=== PATIENT | male | born 1965 | race Caucasian/White ===

== ENCOUNTER 2017-05-19 14:18 | Outpatient (CLI) | payer MEDICARE ==
--- NOTE | 2017-05-19 15:01 | ULT ---
RIGHT UPPER QUADRANT ULTRASOUND: Date: 05/19/17 CLINICAL HISTORY: Hepatitis C. FINDINGS: No focal hepatic lesion. No acute gallbladder pathology. Common duct is normal a 5 mm. There is no a scites. IMPRESSION: No acute abnormality. POS: [facility]
== END 2017-05-19 14:19 | disposition home or self-care (01) ==
LOC: NAV ULT 14:18
PROVIDERS: ATTEND Internal Medicine Gastroenterology
DX: Z12.11 Encounter for screening for malignant neoplasm of colon (principal); R12 Heartburn; Z86.19 Personal history of other infectious and parasitic diseases
CPT/HCPCS: 76705

== ENCOUNTER 2018-06-30 15:20 | Outpatient (CLI) | payer MEDICARE ==
--- NOTE | 2018-06-30 16:24 | ULT ---
GALLBLADDER ULTRASOUND: 06/30/18 HISTORY: Hepatitis C. COMPARISON: 05/19/17. TECHNIQUE: Utilizing a multihertz transducer, sonographic imaging of the right upper quadrant is performed in th e longitudinal and transverse plane. FINDINGS: The visualized hepatic parenchyma has a normal echotexture. No hepatic masses or intrahepatic biliary dilatation. Contour of the hepatic margin is maintained. The head of the pancreas has a normal echot exture. The tail of the pancreas is obscured by bowel gas. The right hepatic lobe measures 16.2 cm. Suboptimal evaluation of the common bile duct. Common bile d uct diameter is 0.5 cm. Gallbladder wall is not thickened. No pericholecystic fluid. Negative Joshi's sign. Questionable jana yp in the lumen of the gallbladder measuring 0.1 cm. RIGHT KIDNEY: No hydronephrosis. Normal cortical echotexture. 10.9 x 5.6 x 5.2 cm. IMPRESSION: Unremarkable right upper quadrant ultrasound. POS: [facility]
== END 2018-06-30 15:21 | disposition home or self-care (01) ==
LOC: NAV ULT 15:20
PROVIDERS: ATTEND Internal Medicine Gastroenterology
DX: Z86.19 Personal history of other infectious and parasitic diseases (principal)
CPT/HCPCS: 76705

== ENCOUNTER 2019-11-07 06:43 | Emergency (ER) | payer MEDICARE ==
[2019-11-07] MEDS ORDERED: Pantoprazole 40 MG VIAL ONE (07:35)
[2019-11-07] MEDS ORDERED: Ketorolac Tromethamine 30 MG/ML VIAL ONE (07:35)
[2019-11-07] MEDS ORDERED: Sodium Chloride 0.9% 1,000 ML ONE (07:35)
[2019-11-07 07:38] LABS: #Basophils 0.1 thou/uL (0.0-0.2); #Eosinphils 0.1 thou/uL (0.0-0.7); #Lymphocytes 0.6 thou/uL (1.20-3.40); #Monocytes 0.6 thou/uL (0.11-0.59); #Neutrophils 6.4 thou/uL (1.40-6.50); %Basophils 0.7 % (0.0-1.0); %Eosinophils 0.7 % (0.0-10.0); %Monocytes 7.1 % (0.0-10.0); %Neutrophils 83.5 % (42.0-75.0); Hemoglobin 14.5 g/dL (14.0-18.0); Mean Corpuscular HGB CONC 32.7 g/dL (32.0-36.0); Mean Corpuscular Hemoglobin 30.4 pg (27.0-31.0); Mean Corpuscular Volume 93.1 fL (78.0-98.0); Mean Platelet Volume 8.2 fL (7.4-10.4); Platelet Count 287 thou/uL (130-400); RBC Distribution Width 12.3 % (11.5-14.5); Red Blood Cell (RBC) Count 4.78 mill/uL (4.70-6.10); White Blood Cell (WBC) Count 7.7 thou/uL (4.8-10.8)
[2019-11-07 07:48] LABS: Bilirubin Negative (Negative); Blood, Urine Trace (Negative); Clarity Clear (Clear); Glucose, Urine (Dipstick) Negative (Negative); Leukocyte Negative (Negative); Nitrite Negative (Negative); Protein, Urine (Dipstick) Trace mg/dL (Neg-Trace); RBC/HPF 0-3 HPF (0-3)
[2019-11-07 07:49] LABS: Bacteria/HPF None Seen HPF (None Seen); Mucous/LPF 1+ LPF (<2+); Squamous Epithelial 0-3 HPF (0-3); WBC/HPF None Seen HPF (0-3)
[2019-11-07 07:53] LABS: ALT (SGPT) 29 U/L (8-55); AST (SGOT) 20 U/L (5-34); Albumin 4.8 g/dL (3.5-5.0); Alcohol Less than 10 mg/dL (Less than 10); Alkaline Phosphatase 69 U/L (40-110); Anion Gap 14 mmol/L (10-20); BUN (Urea Nitrogen) 16 mg/dL (8.4-25.7); Bilirubin, Total 0.6 mg/dL (0.2-1.2); Calc. Creatinine Clearance 0 mL/min (70-130); Calcium 9.8 mg/dL (7.8-10.44); Carbon Dioxide 24 mmol/L (22-29); Chloride 104 mmol/L (98-107); Estimated GFR-MDRD 66; Globulin 2.7 g/dL (2.4-3.5); Glucose 118 mg/dL (70-105); Lipase 22 U/L (8-78); Potassium 4.1 mmol/L (3.5-5.1); Protein, Total 7.5 g/dL (6.0-8.3); Sodium 138 mmol/L (136-145)
[2019-11-07 07:56] LABS: Amphetamine Not Detected (NotDetected); Barbiturates Screen Not Detected (NotDetected); Benzodiazepine Screen Not Detected (NotDetected); Cocaine Metabolite Screen Not Detected (NotDetected); Medtox Control Line Valid? VALID (VALID); Methadone Not Detected (NotDetected); Methamphetamine Not Detected (NotDetected); Opiate Screen Not Detected (NotDetected); Oxycodone Screen Not Detected (NotDetected); Phencyclidine (PCP) Not Detected (NotDetected); THC/Cannabinoid Screen Not Detected (NotDetected); Tricyclic Screen Detected (NotDetected)
--- NOTE | 2019-11-07 08:47 | CT ---
CT Abdomen Pelvis W Con: 11/07/2019 8:07 AM CLINICAL INFORMATION: Fever and abdominal pain; vomiting x2 last night COMPARISON: None. TECHNIQUE: Multiple contiguous axial images were obtained and a CT of the abdomen and pelvis with IV contrast. C oronal and sagittal reformats were performed. FINDINGS: Lower Chest: within normal limits. Abdomen: Liver: 1.2 cm cyst. Bile Ducts: Normal caliber. Gallbladder: No calcified gallstones. Normal caliber wall. Pancreas: within normal limits. Spleen: within normal limits. Adrenals: within normal limits. Kidneys: 2.8 cm left renal cyst. Pelvis: Reproductive Organs: No pelvic masses. Ureters: within normal limits. Bladder: within normal limits. Peritoneum: No ascites or free air, no fluid collection. Bowel: Normal caliber. Normal appendix. Mesentery and Retroperitoneum: No enlarged mesenteric or retroperitoneal lymph nodes. Vessels: Atherosclerotic calcifications. Abdominal Wall: within normal limits. Bones: Degenerative changes in the spine. Bilateral L5 pars defects with anterolisthesis of L5 on S1. IMPRESSION: No evidence of acute intraabdominal or pelvic abnormality.
[2019-11-07] MEDS ORDERED: Iopamidol 370 76% 100 ML VIAL ONE (09:00)
== END 2019-11-07 09:00 | disposition home or self-care (01) ==
LOC: NAV ERS 06:43
DX: R10.33 Periumbilical pain (principal); I10 Essential (primary) hypertension; K21.9 Gastro-esophageal reflux disease without esophagitis; G47.00 Insomnia, unspecified; F17.210 Nicotine dependence, cigarettes, uncomplicated; Z79.899 Other long term (current) drug therapy
CPT/HCPCS: 74177; 80053; 80306; 80307; 81003; 81015; 83690; 85025; 96374; 96375; C9113; J1885; J7050; Q9967